=== PATIENT | male | born 1955 | race Caucasian/White ===

== ENCOUNTER 2023-05-21 17:37 | Emergency (ER) | payer BC, SELFPAY ==
[2023-05-21 17:38] VITALS: BP 209/80
[2023-05-21 18:02] LABS: % Basophils 0.6 % (0-2); % Eosinophils 4.5 % (0-6); % Immature Granulocytes 0.3 % (0-0.5); % Lymphocytes 33.5 % (20.5-51.1); % Monocytes 10.6 % (1.7-9.3); % Neutrophils 50.5 % (42.2-75.2); Absolute Eosinophils 0.3 10^3/uL (0-0.7); Absolute Lymphocytes 2.2 10^3/uL (1.2-3.4); Absolute Monocytes 0.7 10^3/uL (0.1-0.6); Absolute Neutrophils 3.2 10^3/uL (1.4-6.5); Hemoglobin 13.6 g/dL (13.0-18.0); Mean Corp Hgb Conc. 34.9 g/dL (33.0-37.0); Mean Corpuscular Hgb 30.8 pg (27.0-31.0); Mean Corpuscular Volume 88.4 fL (80.0-94.0); Mean Platelet Volume 9.1 fL (7.4-10.4); Nucleated Red Blood Cells % 0 % (-); Platelet Count 206 10^3/uL (130-400); Red Blood Cell Count 4.41 10^6/uL (4.70-6.10); Red Cell Dist. Width 12.7 % (11.5-14.5); White Blood Cell Count 6.4 10^3/uL (4.8-10.8)
[2023-05-21 18:16] LABS: ALT (SGPT) 48 U/L (0-50); AST (SGOT) 38 U/L (17-59); Albumin 3.9 g/dl (3.5-5.0); Alkaline Phosphatase 85 U/L (38-126); Blood Urea Nitrogen 24 mg/dl (9-20); Carbon Dioxide 23 mmol/L (22-30); Chloride 111 mmol/L (98-107); Glucose 123 mg/dl (70-99); Lipase 307 U/L (23-300); Potassium 3.7 mmol/L (3.5-5.1); Sodium 138 mmol/L (135-145); Total Bilirubin 0.4 mg/dl (0.2-1.3); Total Protein 6.7 g/dl (6.3-8.2); eGFR > 60.00
--- NOTE | 2023-05-21 19:51 | ED.GENMED ---
History of Present Illness
General
Chief Complaint: Abdominal Pain
Time Seen by Provider: 05/21/23 19:50
Travel History
Have you had any contact with someone who has COVID-19?: No
Do you have any symptoms of coronavirus? Fever > 100 degrees, chills, cough, shortness of breath, sore throat, loss of taste or smell, muscle aches, or headache?: No
History of Present Illness
History of Present Illness:
HPI: About 3 to 4 hours prior to arrival, the patient developed mild right lower quadrant discomfort. Described as a stabbing sensation. He has maybe a questionable loss of appetite. He does not have any urinary symptoms/no urinary hesitancy.
EXAM:
GENERAL: Well appearing in no distress
HEENT: Moist oral mucosa
CARDIOVASCULAR: No murmurs, normal heart rate, regular rhythm, No chest wall tenderness
PULMONARY: No respiratory distress, breath sounds are clear and equal
ABDOMEN: Soft with no peritoneal signs, very minimal right lower quadrant tenderness, no CVA tenderness
NEUROLOGIC: Excellent strength all extremities, no coordination deficits
PSYCHIATRIC: Appropriate mental status, normal insight and judgement
EXTREMITIES: Nontender, no edema, moves all extremities equally
SKIN: No rash, no lesions
TIME OF INITIAL ENCOUNTER: 8 PM
NUMBER AND COMPLEXITY OF PROBLEMS ADDRESSED AT THE ENCOUNTER
� Chronic conditions affecting care: CAD, high blood pressure, hyperlipidemia
� Acute Exacerbation and/or Progression of Chronic Illness: This is an acute problem
� Differential Diagnosis includes: Abdominal wall strain, appendicitis, mesenteric adenitis, diverticulitis unlikely, ureteral stone/colic
AMOUNT AND/OR COMPLEXITY OF DATA TO BE REVIEWED AND ANALYZED
� I performed an independent evaluation of and my interpretation is:
EKG:
CT: I personally reviewed CT imaging�stone noted in the bladder�urologist interpretation was that it was at the UVJ
X-rays:
Laboratory Studies: White count 6.4, chemistries unremarkable, lipase 307, urinalysis shows blood with no sign of infection
Other:
� Review of other/old records: I reviewed records, lab work from April of last year was relatively unremarkable
� Clinical information was obtained by an independent historian: Lives at home
� Prescriptions/Medications Considered but not given:
� Further testing considered but not performed:
RISK OF COMPLICATIONS AND/OR MORBIDITY OR MORTALITY OF PATIENT MANAGEMENT
� Social determinants of health affecting care: Lives at home
� Discussion with other providers:
� Escalation of care including admission/observation vs risk of discharge considered: The patient is very comfortable in appearance. His white count is normal. On reassessment at 9:30 PM, the patient feels markedly improved and
has virtually no symptoms currently. Recommended short course of NSAIDs however the patient is on antiplatelet therefore would limit the use. I did give a prescription for narcotic analgesia in case the pain returns as well as Flomax and Zofran.
He is to follow-up with urologist.
Past History
Past History
ED Past Medical History: CAD and Hypercholesterolemia
ED Past Surgical History: Cardiac (Circumflex stent)
Social History
Tobacco: Non-smoker
Personal:
Living: with family
Employment: Employed
Phy Exam
Physical Exam
Physical Exam:
See HPI
Course
Orders/Labs/Results
Orders:
Orders
05/21/23 17:45
IV Insert/Care/Rem.- Treatment PRN
05/21/23 17:55
Complete Blood Count/With Diff Urgent
Comprehensive Metabolic Panel Urgent
Lipase Urgent
05/21/23 19:57
CT Abd/pelvis W Iv Cont Urgent
Comment:
Reason For Exam: RLQ pain
0.9% Sodium Chloride 1000 ml [Nss] 1,000 ml IV BOLUS
Ketorolac [Toradol] 15 mg IV NOW STA
05/21/23 21:35
Urinalysis Reflex To Culture Urgent
Date Specimen was Collected: 05/21/23
Time Specimen was Collected: 21:29
Urine Microscopic Reflex Cult Urgent
Abnormal Lab Results
05/21/23 05/21/23
17:55 21:35
RBC 4.41 L 10^6/uL
(4.70-6.10)
Absolute Monos (auto) 0.7 H 10^3/uL
(0.1-0.6)
Monocytes % 10.6 H %
(1.7-9.3)
Chloride 111 H mmol/L
(98-107)
BUN 24 H mg/dl
(9-20)
Glucose 123 H mg/dl
(70-99)
Lipase 307 H U/L
(23-300)
Ur Occult Blood Reflex 3+ A
(Negative)
Urine Albumin (Reflex) 1+ A
(Neg - Trace)
05/21/23 17:55
05/21/23 17:55
Vital Signs
Initial and Last Documented VS:
Initial Vital Signs
Temp Pulse Resp BP Pulse Ox
98.9 F 65 22 209/80 99
05/21/23 17:38 05/21/23 17:38 05/21/23 17:38 05/21/23 17:38 05/21/23 17:38
Last Documented Vital Signs
Temp Pulse Resp BP Pulse Ox
98.9 F 65 22 187/87 97
05/21/23 17:38 05/21/23 20:45 05/21/23 17:38 05/21/23 20:45 05/21/23 20:45
*Critical Care Note
Total Time (30-74mins, 75-104mins- exclusive of procedures): Not Applicable
ED Attending Note
-
Portions of this chart may have been created with voice recognition software.� Occasional wrong word or��sound alike� substitutions may have occurred due to the inherent limitations of voice recognition software.
Discharge Plan
Departure
Patient Disposition: Home (Routine Discharge)
Date of Disposition: 05/21/23
Time of Disposition: 21:43
Patient with high blood pressure during this ER visit?: Yes
Discharge Problem:
Right ureteral stone
Instructions: Kidney Stones (DC)
Prescriptions:
New
tamsulosin [Flomax] 0.4 mg capsule
0.4 mg PO DAILY Qty: 14 0RF
oxycodone-acetaminophen [Percocet] 5-325 mg tablet
1 - 2 tab PO Q6HPRN PRN (Reason: pain) Qty: 14 0RF
ondansetron HCl 4 mg tablet
4 mg PO Q8H PRN (Reason: nausea and vomiting) Qty: 7 0RF
No Action
citalopram 20 MG tablet
20 mg PO DAILY
aspirin 81 MG tablet,chewable
81 mg PO DAILY
metoprolol tartrate 25 MG tablet
PO DAILY
ticagrelor [Brilinta] 90 MG tablet
90 mg PO BID
Statin
Referrals:
Ronni Fernandez MD [Active] - Follow up in 2-3 days
Dominic Michelle MD [Family Provider] -
Activity Restrictions/Additional Instructions:
CAT scan shows a 2 mm stone at the junction of the right ureter and the bladder. The appendix was normal. Incidentally noted was a fatty liver and very slightly enlarged spleen�these have nothing to do with your symptoms. I have given you the
contact information for a local urologist to follow-up with. Please follow-up your primary care doctor. I recommend 3-4 [id number]-[id number] ibuprofen (Motrin) every 8 hours with food as needed but limit the use if you are still taking aspirin and
Brilinta. Return here if worse. If you take Percocet, I recommend that you take something like MiraLAX to help prevent constipation.
Interventions
Interventions:
*Risk Screen - Suicide Last Done: 05/21/23 17:43
*General Assessment Last Done: 05/21/23 17:43
*Neglect/Abuse Screening Last Done: 05/21/23 17:43
ED- Fall Risk Assessment Last Done: 05/21/23 21:09
GE-Ooqqct-Aieefufgfk Assessment Last Done: 05/21/23 21:09
Discharge Date and Time
Print Language: MALTESE
[2023-05-21] MEDS: TORADOL 15 MG IV (20:19)
[2023-05-21] MEDS: NSS 1000 IV (20:19)
[2023-05-21 20:45] VITALS: BP 187/87
[2023-05-21 21:44] LABS: Urine Albumin 1+ (Neg - Trace); Urine Bilirubin Negative (Negative); Urine Character Clear (Clear); Urine Color Yellow; Urine Glucose Negative (Negative); Urine Ketone Negative (Negative); Urine Leukocyte Negative (Negative); Urine Nitrite Negative (Negative); Urine Occult Blood 3+ (Negative); Urine Specific Gravity 1.015 (<1.030); Urine Urobilinogen Negative (Neg - 1+)
[2023-05-21 21:53] LABS: Urine White Cell None Seen /HPF (0-5)
== END 2023-05-21 22:13 | disposition home or self-care (01) ==
LOC: EMR 17:37
PROVIDERS: EMERGENCY PHYSICIAN Emergency Medicine; FAMILY PHYSICIAN Internal Medicine
DX: N20.1 Calculus of ureter (principal); I10 Essential (primary) hypertension; I25.10 Atherosclerotic heart disease of native coronary artery without angina pectoris; E78.00 Pure hypercholesterolemia, unspecified; Z95.5 Presence of coronary angioplasty implant and graft
CPT/HCPCS: 99285; 96374; 96361; 74177; 80053; 81003; 81015; 83690; 85025; Q9967

== ENCOUNTER → 2024-10-23 13:57 | Outpatient (REF) | payer BC, SELFPAY | LOC: HWRCS 13:57 | PROVIDERS: ATTENDING PHYSICIAN Internal Medicine Cardiovascular Disease; FAMILY PHYSICIAN Internal Medicine | DX: I10 Essential (primary) hypertension (principal); Z95.5 Presence of coronary angioplasty implant and graft | CPT/HCPCS: 93306 ==